=== PATIENT | male | born 1970 | race Caucasian/White ===

== ENCOUNTER 2016-12-08 08:10 | Emergency (ER) | payer SELFPAY ==
[~2016-12-08 08:10] MED LIST: Lidocaine 1% 20 ML MDV ONE; Sodium Chloride 0.9% 1,000 ML BAG ONE
[2016-12-08] MEDS ORDERED: Ondansetron ODT 4 MG TAB ONE (09:23)
[2016-12-08] MEDS ORDERED: Ketorolac Tromethamine 60 MG/2 ML VIAL ONE (09:23)
[2016-12-08 09:37] LABS: #Basophils 0.2 thou/uL (0.0-0.2); #Neutrophils 9.6 thou/uL (1.40-6.50); %Basophils 1.5 % (0.0-1.0); %Eosinophils 0.1 % (0.0-10.0); %Lymphocytes 8.3 % (21.0-51.0); %Monocytes 8.7 % (0.0-10.0); %Neutrophils 81.4 % (42.0-75.0); Hemoglobin 16.2 g/dL (14.0-18.0); Mean Corpuscular HGB CONC 34.4 g/dL (32.0-36.0); Mean Corpuscular Hemoglobin 32.4 pg (27.0-31.0); Mean Platelet Volume 8.2 fL (7.4-10.4); Platelet Count 217 thou/uL (130-400); RBC Distribution Width 11.7 % (11.5-14.5); Red Blood Cell (RBC) Count 4.99 mill/uL (4.70-6.10); White Blood Cell (WBC) Count 11.7 thou/uL (4.8-10.8)
[2016-12-08 09:51] LABS: ALT (SGPT) 16 U/L (0-55); AST (SGOT) 13 U/L (5-34); Albumin 4.1 g/dL (3.5-5.0); Alkaline Phosphatase 61 U/L (40-150); Anion Gap 15 mmol/L (10-20); BUN (Urea Nitrogen) 12 mg/dL (8.9-20.6); Bilirubin, Total 1.5 mg/dL (0.2-1.2); Calc. Creatinine Clearance 0 mL/min (70-130); Carbon Dioxide 25 mmol/L (22-29); Chloride 100 mmol/L (98-107); Estimated GFR-MDRD 51; Globulin 2.9 g/dL (2.4-3.5); Glucose 228 mg/dL (70-105); Sodium 136 mmol/L (136-145)
--- NOTE | 2016-12-08 10:00 | CT ---
NONCONTRAST ABDOMEN AND PELVIS CT: Date: 12/08/16 CLINICAL HISTORY: Left flank pain, fever. FINDINGS: A 4.0 x 6.0 mm mid left ureteral calculus with moderate left obstructive uropathy is present. The so lid abdominal organs, bowel lymph nodes, and vasculature are otherwise limited by the absence of IV and enteric contrast. Mild volume loss is seen at the partially imaged lung bases. There are phlebol iths within the pelvis. Nonspecific mild prominence of bilateral inguinal lymph nodes. Correlate cli nically. Osseous degenerative changes are present. IMPRESSION: Moderate left obstructive uropathy related to a 4 x 6 mm mid left ureteral calculus. POS: [facility]
[2016-12-08 11:39] LABS: Bilirubin Negative (Negative); Blood, Urine Small (Negative); Clarity Clear (Clear); Glucose, Urine (Dipstick) 500 mg/dL (Negative); Leukocyte Negative (Negative); Nitrite Negative (Negative); Protein, Urine (Dipstick) 30 mg/dL (Neg-Trace); Urobilinogen 0.2 mg/dL (0.2-1.0)
[2016-12-08 11:40] LABS: Bacteria/HPF Rare-Few HPF (None Seen); Renal Epithelial 0-3 HPF (0-3); Specific Gravity, Urine 1.033 (1.002-1.036); Squamous Epithelial 0-3 HPF (0-3); Transitional Epithelial 0-3 HPF (0-3); WBC/HPF 0-3 HPF (0-3)
[2016-12-08] MEDS ORDERED: cefTRIAXone\\ROCEPHIN 1 GM VIAL ONE (12:03)
== END 2016-12-08 10:15 | disposition home or self-care (01) ==
LOC: MADERS 08:10
DX: N20.0 Calculus of kidney (principal); I10 Essential (primary) hypertension; R73.9 Hyperglycemia, unspecified; E78.5 Hyperlipidemia, unspecified; E78.00 Pure hypercholesterolemia, unspecified; J45.909 Unspecified asthma, uncomplicated
CPT/HCPCS: 36415; 74176; 80053; 81003; 81015; 85025; 96360; 96361; 96372; J0696; J1885; J2001; J7050; Q0162

== ENCOUNTER 2016-12-10 14:06 | Emergency (ER) | payer SELFPAY ==
[~2016-12-10 14:06] MED LIST changes: -Lidocaine 1% 20 ML MDV ONE
[2016-12-10] MEDS ORDERED: Ketorolac Tromethamine 30 MG/ML VIAL ONE (14:41)
[2016-12-10] MEDS ORDERED: Fentanyl 100 MCG/2 ML VIAL ONE (14:41)
[2016-12-10 15:00] LABS: #Basophils 0.2 thou/uL (0.0-0.2); #Eosinphils 0.1 thou/uL (0.0-0.7); #Lymphocytes 1.1 thou/uL (1.20-3.40); #Monocytes 1.1 thou/uL (0.11-0.59); #Neutrophils 7.4 thou/uL (1.40-6.50); %Basophils 2.3 % (0.0-1.0); %Eosinophils 0.6 % (0.0-10.0); %Lymphocytes 10.9 % (21.0-51.0); %Monocytes 11.5 % (0.0-10.0); %Neutrophils 74.7 % (42.0-75.0); Hemoglobin 14.4 g/dL (14.0-18.0); Mean Platelet Volume 7.4 fL (7.4-10.4); Platelet Count 207 thou/uL (130-400); RBC Distribution Width 11.2 % (11.5-14.5); Red Blood Cell (RBC) Count 4.51 mill/uL (4.70-6.10); White Blood Cell (WBC) Count 9.9 thou/uL (4.8-10.8)
[2016-12-10 15:13] LABS: ALT (SGPT) 18 U/L (0-55); AST (SGOT) 14 U/L (5-34); Albumin 3.7 g/dL (3.5-5.0); Alkaline Phosphatase 61 U/L (40-150); Anion Gap 13 mmol/L (10-20); BUN (Urea Nitrogen) 13 mg/dL (8.9-20.6); Bilirubin, Total 0.8 mg/dL (0.2-1.2); CRP (Inflammatory) 9.67 mg/dL (= or < 0.5); Calc. Creatinine Clearance 0 mL/min (70-130); Calcium 8.7 mg/dL (7.8-10.44); Carbon Dioxide 28 mmol/L (22-29); Chloride 100 mmol/L (98-107); Estimated GFR-MDRD 45; Glucose 177 mg/dL (70-105); Protein, Total 6.7 g/dL (6.0-8.3); Sodium 137 mmol/L (136-145)
--- NOTE | 2016-12-10 15:18 | CT ---
CT ABDOMEN AND PELVIS WITHOUT CONTRAST: Date: 12/10/16 HISTORY: Left flank pain. FINDINGS: Comparison made with exam of 12/08/16. The 4.0 x 6.0 mm mid left ureteral calculus with moderate left obstructive uropathy is again seen. T he calculus was at the mid L4 level and is now at L4-5 level. There are dependent changes in the lung bases. A small hiatal hernia is present. No calcified gallst ones are seen. No free air or free fluid is noted in the abdomen or pelvis. A normal appearing appen giselle is seen. No calculi seen in the kidneys, right ureter, or the urinary bladder. No right-sided hydroureteronep hrosis is noted. The prostate is enlarged. IMPRESSION: Continued moderate left obstructive uropathy secondary to a 4.0 x 6.0 mm mid left ureteral calculus. POS: [facility]
[2016-12-10] MEDS ORDERED: Levofloxacin 500 mg/D5W 100 ml Premix Bag ONE (15:48)
[2016-12-10 17:16] LABS: Bilirubin Negative (Negative); Blood, Urine Trace (Negative); Clarity Clear (Clear); Glucose, Urine (Dipstick) 100 mg/dL (Negative); Leukocyte Negative (Negative); Nitrite Negative (Negative); Protein, Urine (Dipstick) 100 mg/dL (Neg-Trace); Specific Gravity, Urine 1.025 (1.005-1.030)
[2016-12-10 17:21] LABS: RBC/HPF 0-3 HPF (0-3)
[2016-12-10 17:22] LABS: Bacteria/HPF Rare-Few HPF (None Seen); Squamous Epithelial 0-3 HPF (0-3)
== END 2016-12-10 18:13 | disposition short-term general hospital (02) ==
LOC: MADERS 14:06
DX: N20.0 Calculus of kidney (principal); I49.9 Cardiac arrhythmia, unspecified; E78.00 Pure hypercholesterolemia, unspecified; J45.909 Unspecified asthma, uncomplicated; E78.5 Hyperlipidemia, unspecified
CPT/HCPCS: 36415; 74176; 80053; 81003; 81015; 85025; 86140; 87040; 87086; 96361; 96365; 96375; J1885; J1956; J3010; J7050

== ENCOUNTER 2017-04-04 07:32 | Emergency (ER) | payer BC ==
[2017-04-04] MEDS ORDERED: Diphenoxylate HCl/Atropine Tablet ONE (08:14)
[2017-04-04] MEDS ORDERED: Famotidine 20 MG TAB ONE (08:15)
== END 2017-04-04 08:17 | disposition home or self-care (01) ==
LOC: MADERS 07:32
DX: R19.7 Diarrhea, unspecified (principal); E78.5 Hyperlipidemia, unspecified; J45.909 Unspecified asthma, uncomplicated
CPT/HCPCS: 99283

== ENCOUNTER 2017-11-01 06:35 | Emergency (ER) | payer BC ==
[2017-11-01] MEDS ORDERED: Oseltamivir 6 MG/ML ORAL SUSP ONE (08:21)
[2017-11-01] MEDS ORDERED: Dexamethasone 4 MG TAB ONE (08:21)
[2017-11-01] MEDS ORDERED: Oseltamivir 75 MG CAP ONE (08:22)
== END 2017-11-01 08:30 | disposition home or self-care (01) ==
LOC: MADERS 06:35
DX: J11.1 Influenza due to unidentified influenza virus with other respiratory manifestations (principal); E78.5 Hyperlipidemia, unspecified; J45.909 Unspecified asthma, uncomplicated; I49.9 Cardiac arrhythmia, unspecified
CPT/HCPCS: 87081; 87430; 99283; J8540